=== PATIENT | female | born 1965 | race Caucasian/White ===

== ENCOUNTER 2018-10-27 13:20 | Emergency (ER) | payer MEDICARE, MEDICAID ==
[~2018-10-27] VITALS: Ht 170.2 cm; Wt 81.8 kg
[~2018-10-27 13:20] MED LIST: CLIN-96 PO; CYCL-1 PO; HYDR-4383 PO; NAPR-1144 PO; PRED5TAB PO
[2018-10-27] MEDS ORDERED: normal saline 1000ML IV soln IVB ONE (13:50)
[2018-10-27] MEDS ORDERED: ondansetron/PF 4mg/2ml inj IV ONE (13:50)
[2018-10-27] MEDS ORDERED: ketorolac trometh. 30mg/ml inj. IV ONE (13:50)
[2018-10-27] MEDS ORDERED: morphine 4 MG/ML inj SYRINge IV PRN (13:50)
--- NOTE | 2018-10-27 15:04 | NUR ---
Pt refusing morphine, pt reports it makes her stomach upset.
[2018-10-27 15:10] LABS: BASOPHILS # (AUTO) 0.1 X10'3 (0-0.2); BASOPHILS % (AUTO) 0.7 % (0-1); EOSINOPHILS % (AUTO) 0 % (0-6); HEMATOCRIT 33.5 % (35.0-45.0); HEMOGLOBIN 11.2 g/dl (12.0-16.0); LYMPHOCYTES # (AUTO) 0.9 X10'3 (1.1-4.8); LYMPHOCYTES % (AUTO) 4.9 % (21-51); MEAN CORPUSCULAR HEMOGLOBIN 29.6 PG (27.0-31.0); MEAN CORPUSCULAR HGB CONC 33.3 g/dL (33.0-36.5); MEAN CORPUSCULAR VOLUME 88.9 FL (78-98); MEAN PLATELET VOLUME 7.9 FL (7.4-10.4); MONOCYTES # (AUTO) 0.9 X10'3 (0-0.9); MONOCYTES % (AUTO) 4.9 % (2-12); NEUTROPHILS # (AUTO) 16.8 X10'3 (1.8-7.7); NEUTROPHILS % (AUTO) 89.5 % (42-75); PLATELET COUNT 170 X10'3 (140-440); RED BLOOD COUNT 3.77 X10'6 (4.20-5.60); RED CELL DISTRIBUTION WIDTH 13.7 % (11.5-14.5); WHITE BLOOD COUNT 18.8 X10'3 (4.5-11.0)
[2018-10-27] MEDS ORDERED: normal saline 1000ML IV soln IV ONE (15:20)
[2018-10-27 15:25] LABS: PLATELET ESTIMATE NORMAL; TOTAL CELLS COUNTED 100
[2018-10-27] MEDS ORDERED: iohexol 300mg/ml 100ml inj. ONE (15:25)
[2018-10-27 15:32] LABS: ALANINE AMINOTRANSFERASE 70 U/L (12-78); ALBUMIN 2.4 G/DL (3.4-5.0); ALBUMIN/GLOBULIN RATIO 0.7 (1.1-1.5); ALKALINE PHOSPHATASE 61 IU/L (46-116); ANION GAP 8 (8-16); ASPARTATE AMINO TRANSFERASE 29 U/L (10-37); BILIRUBIN,TOTAL 0.5 MG/DL (0.1-1.0); BLOOD UREA NITROGEN 11 MG/DL (7-18); BUN/CREATININE RATIO 15.7 (6.6-38.0); CALCIUM 7.3 MG/DL (8.5-10.1); CHLORIDE 105 MMOL/L (99-107); GLUCOSE 133 MG/DL (70-104); LIPASE 71 U/L (73-393); SODIUM 134 MMOL/L (135-145); TOTAL CARBON DIOXIDE 20.8 MMOL/L (24-32); TOTAL PROTEIN 5.9 G/DL (6.4-8.2); eGFR 88 ML/MIN
[2018-10-27 15:35] LABS: POTASSIUM 2.7 MMOL/L (3.5-5.1)
[2018-10-27] MEDS ORDERED: potassium Cl 10 mEq/100mL bag IV ONE (15:55)
[2018-10-27] MEDS ORDERED: potassium Cl oral solution 20 MEQ/15 ML PO ONE (15:55)
[2018-10-27] MEDS ORDERED: CefTRIAXone 2gm/D5W 50ml 50 ML IV ONE (16:10)
[2018-10-27 16:34] LABS: CLARITY,URINE CLEAR (Clear); COLOR,URINE STRAW (Yellow); GLUCOSE, URINE NEGATIVE (Neg); KETONES,URINE NEGATIVE (Neg); LEUKOCYTE ESTERASE ,URINE NEGATIVE (Neg); NITRITES, URINE NEGATIVE (Neg); OCCULT BLOOD,URINE TRACE-LYSED (Neg); PROTEIN,URINE NEGATIVE (Neg); UA COLLECTION TYPE CLN CATCH MIDSTREAM; UROBILINOGEN,URINE 0.2 E.U/dL (0.2-1.0)
[2018-10-27 16:39] LABS: SQUAMOUS EPITHELIAL CELL,UR MODERATE /LPF (FEW)
[2018-10-27 16:40] LABS: BACTERIA,URINE FEW /HPF (Neg); RBC,URINE 0-2 /HPF (0-2); WBC,URINE 0-4 /HPF (0-4)
[2018-10-27] MEDS ORDERED: ONDA4TAB6 PO (17:05)
[2018-10-27] MEDS ORDERED: CEPH-571 PO (17:05)
[2018-10-27] MEDS ORDERED: DOXY100C43 PO (17:05)
[2018-10-27 18:39] VITALS: BP 134/73
== END 2018-10-27 18:40 | disposition home or self-care (01) ==
LOC: ER 13:20
DX: E86.0 Dehydration (principal); E87.6 Hypokalemia; L03.116 Cellulitis of left lower limb; F15.10 Other stimulant abuse, uncomplicated; R10.12 Left upper quadrant pain; M19.90 Unspecified osteoarthritis, unspecified site; Z20.2 Contact with and (suspected) exposure to infections with a predominantly sexual mode of transmission; Z86.14 Personal history of Methicillin resistant Staphylococcus aureus infection; Z79.899 Other long term (current) drug therapy
CPT/HCPCS: 36415; 74177; 80053; 81001; 83605; 83690; 84145; 85025; 87040; 87491; 87591; 96361; 96365; 96368; 96375; 99284; J0696; J1885; J2270; J2405; J3480; J7030; Q9967

== ENCOUNTER 2022-02-07 05:34 | Emergency (ER) | payer MEDICARE, MEDICAID ==
[~2022-02-07] VITALS: Ht 170.2 cm; Wt 92.0 kg
[~2022-02-07 05:34] MED LIST changes: +CEPH-571 PO; -CLIN-96 PO; +CLIN-97 PO; +ONDA4TAB6 PO
[2022-02-07 05:43] VITALS: BP 186/99
--- NOTE | 2022-02-07 06:33 | NUR ---
pt left without being seen per registration
== END 2022-02-07 06:34 | disposition left against medical advice (07) ==
LOC: ER 05:37
DX: M79.604 Pain in right leg (principal); Z53.21 Procedure and treatment not carried out due to patient leaving prior to being seen by health care provider

== ENCOUNTER 2022-08-09 14:25 | Emergency (ER) | payer MEDICARE, MEDICAID ==
[~2022-08-09] VITALS: Ht 170.2 cm; Wt 90.9 kg
[2022-08-09 15:43] LABS: ALANINE AMINOTRANSFERASE 25 U/L (12-78); ALKALINE PHOSPHATASE 94 IU/L (46-116); ANION GAP 8 (8-16); ASPARTATE AMINO TRANSFERASE 25 U/L (10-37); BILIRUBIN,TOTAL 0.3 MG/DL (0.1-1.0); BLOOD UREA NITROGEN 10 MG/DL (7-18); BUN/CREATININE RATIO 14.1 (6.6-38.0); CHLORIDE 100 MMOL/L (99-107); CREATININE 0.71 MG/DL (0.40-0.90); GLUCOSE 159 MG/DL (70-104); LIPASE 68 U/L (73-393); POTASSIUM 4.3 MMOL/L (3.5-5.1); SODIUM 133 MMOL/L (135-145); TOTAL CARBON DIOXIDE 24.8 MMOL/L (24-32); eGFR 85 ML/MIN
[2022-08-09 16:10] VITALS: BP 154/90
[2022-08-09 16:15] LABS: BASOPHILS # (AUTO) 0.1 X10'3 (0-0.2); BASOPHILS % (AUTO) 0.9 % (0-1); EOSINOPHILS # (AUTO) 0.2 X10'3 (0-0.9); EOSINOPHILS % (AUTO) 2.7 % (0-6); HEMATOCRIT 51.9 % (35.0-45.0); HEMOGLOBIN 16.8 g/dl (12.0-16.0); LYMPHOCYTES # (AUTO) 0.9 X10'3 (1.1-4.8); LYMPHOCYTES % (AUTO) 11.8 % (21-51); MEAN CORPUSCULAR HEMOGLOBIN 28.5 PG (27.0-31.0); MEAN CORPUSCULAR HGB CONC 32.4 g/dL (33.0-36.5); MEAN CORPUSCULAR VOLUME 87.9 FL (78-98); MONOCYTES # (AUTO) 1.1 X10'3 (0-0.9); MONOCYTES % (AUTO) 15.4 % (2-12); NEUTROPHILS % (AUTO) 69.2 % (42-75); PLATELET COUNT 203 X10'3 (140-440); WHITE BLOOD COUNT 7.2 X10'3 (4.5-11.0)
--- NOTE | 2022-08-09 20:45 | NUR ---
pt has been back in forth from lobby to her vehicle. Pt not in lobby again Registration called her sister and got her phone number but she is not answering her phone will LWOBS the pt.
== END 2022-08-09 20:47 | disposition left against medical advice (07) ==
LOC: ER 14:26
DX: R10.30 Lower abdominal pain, unspecified (principal); Z53.21 Procedure and treatment not carried out due to patient leaving prior to being seen by health care provider
CPT/HCPCS: 36415; 80053; 83690; 85025; 99281

== ENCOUNTER 2023-06-12 18:04 | Emergency (ER) | payer MEDICARE, MEDICAID ==
[~2023-06-12] VITALS: Ht 170.2 cm; Wt 93.0 kg
[2023-06-12] MEDS ORDERED: amox tr/potassium clavulanate 875/125mg TAB PO ONE (18:15)
[2023-06-12] MEDS ORDERED: TETanus/Pertussis (Acell)/Diphther VAC/PF (Tdap-Adult) 0.5ml syringe IMVAC ONE (18:15)
[2023-06-12] MEDS ORDERED: LIDOcaine 1%/PF 5ML 10 MG/ML VIAL SQ ONE (18:15)
[2023-06-12] MEDS ORDERED: LIDOcaine 1% 30ml preserv. free vial IJ STA (18:20)
[2023-06-12] MEDS ORDERED: bacitracin 15gm ointment TP ONE (19:35)
[2023-06-12 20:04] VITALS: BP 130/78; PULSE 78; RESP 18; TEMP 98.2; O2SAT 98
[2023-06-12] MEDS ORDERED: AMOX-580 PO (20:05)
== END 2023-06-12 20:06 | disposition home or self-care (01) ==
LOC: ER 18:05
DX: S61.512A Laceration without foreign body of left wrist, initial encounter (principal); M19.90 Unspecified osteoarthritis, unspecified site; F15.90 Other stimulant use, unspecified, uncomplicated; Z79.2 Long term (current) use of antibiotics; Z79.899 Other long term (current) drug therapy; Z23 Encounter for immunization; W54.0XXA Bitten by dog, initial encounter; Y93.89 Activity, other specified; Y92.009 Unspecified place in unspecified non-institutional (private) residence as the place of occurrence of the external cause; Y99.8 Other external cause status
CPT/HCPCS: 12002; 73110; 90471; 90715; 99283; J7030; A6258; A6446; A6449